=== PATIENT | male | born 1995 | race Caucasian/White ===

== ENCOUNTER 2020-07-03 00:35 | Emergency (ER) | payer OTHER ==
[2020-07-03] MEDS ORDERED: methylPREDNISolone Sod Succ/PF 125 MG/2 ML VIAL ONE (00:38)
[2020-07-03] MEDS ORDERED: diphenhydrAMINE 50 MG/ML VIAL ONE (00:39)
[2020-07-03] MEDS ORDERED: Famotidine/PF 20 mg/2ml Vial ONE (00:39)
== END 2020-07-03 02:41 | disposition home or self-care (01) ==
LOC: CSHERS 00:35
DX: T78.1XXA Other adverse food reactions, not elsewhere classified, initial encounter (principal); L29.9 Pruritus, unspecified; J45.909 Unspecified asthma, uncomplicated
CPT/HCPCS: 96374; 96375; J1200; J2930; S0028